=== PATIENT | female | born 1985 | race Caucasian/White ===

== ENCOUNTER 2018-02-09 10:51 | Emergency (ER) | payer OTHER ==
[2018-02-09] MEDS ORDERED: NORMAL SALINE 1000 ML 1,000 ML IV ONE (11:16)
[2018-02-09] MEDS ORDERED: KETOROLAC TROMETHAMINE INJ/PF 30 MG/1 ML SDV IV ONE (11:16)
--- NOTE | 2018-02-09 11:18 | ER Document Report ---
ED Medical Screen (RME) - General Chief Complaint: Flank Pain Stated Complaint: FLANK PAIN Time Seen by Provider: 02/09/18 11:16 Mode of Arrival: Wheelchair Information source: Patient - HPI Patient complains to provider of: L flank pain Onset: This morning - pt with onset of L flank pain earlier today. Went to and was sent here for further evaluation of possible kidney stones. - Related Data Allergies/Adverse Reactions: Iodine and Iodide Containing Produc Allergy (Verified 02/09/18 10:53) Physical Exam - Vital signs Vitals: Temp Pulse Resp BP Pulse Ox 97.6 F 66 16 121/78 98 02/09/18 11:00 02/09/18 11:00 02/09/18 11:00 02/09/18 11:00 02/09/18 11:00 Course - Vital Signs Vital signs: Temp Pulse Resp BP Pulse Ox 97.6 F 66 16 121/78 98 02/09/18 11:00 02/09/18 11:00 02/09/18 11:00 02/09/18 11:00 02/09/18 11:00
--- NOTE | 2018-02-09 12:06 | RADIOLOGY REPORT (SQ) ---
EXAM DESCRIPTION: CT LTD RENAL STONE PROTOCOL ON COMPLETED DATE/TIME: 02/09/2018 11:47 am REASON FOR STUDY: L flank pain COMPARISON: None. TECHNIQUE: CT scan of the abdomen and pelvis performed without intravenous or oral contrast. Images reviewed with lung, soft tissue, and bone windows. Reconstructed coronal and sagittal MPR images revi ewed. All images stored on PACS. All CT scanners at this facility use dose modulation, iterative reconstruction, and/or weight based d osing when appropriate to reduce radiation dose to as low as reasonably achievable (ALARA). [facility]: Dose Right [facility]: CareDose [facility]: Dose Right [facility]: Teradose 4D [facility]: Smart Toppr RADIATION DOSE: CT Rad equipment meets quality standard of care and radiation dose reduction techniq ues were employed. CTDIvol: 6.7 mGy. DLP: 346 mGy-cm.mGy. LIMITATIONS: None. FINDINGS: LOWER CHEST: No significant findings. No nodules or infiltrates. NON-CONTRASTED LIVER, SPLEEN, ADRENALS: Evaluation limited by lack of IV contrast. No identified sign ificant masses. PANCREAS: No masses. No peripancreatic inflammatory changes. GALLBLADDER: No identified stones by CT criteria. No inflammatory changes to suggest cholecystitis. RIGHT KIDNEY AND URETER: No suspicious masses. Assessment limited by lack of IV contrast. No signif icant calcifications. No hydronephrosis or hydroureter. LEFT KIDNEY AND URETER: No suspicious masses. Assessment limited by lack of IV contrast. No definit e renal calculi are identified. An obstructing 8.9 x 4.8 mm in diameter calculus is identified in th e distal left ureter best seen on image number 60. CT number is 886. There is hydronephrosis of the left kidney and dilatation of the left ureter proximal to the obstructing calculus. AORTA AND RETROPERITONEUM: No aneurysm. No retroperitoneal masses or adenopathy. BOWEL AND PERITONEAL CAVITY: No obvious masses or inflammatory changes. No free fluid. APPENDIX: Normal. PELVIS, BLADDER, AND ABDOMINAL WALL:No abnormal masses. No free fluid. Bladder normal. Intrauterine IUD is identified. BONES: No significant findings. OTHER: No other significant finding. IMPRESSION: Obstructing 8.9 x 4.8 mm in diameter calculus in the distal left ureter. No definite re nal calculi are identified. Other findings as noted above COMMENT: Quality ID # [id number]: Final reports with documentation of one or more dose reduction techniques (e.g., Automated exposure control, adjustment of the mA and/or kV according to patient size, use of iterative reconstruction technique) TECHNICAL DOCUMENTATION: JOB ID: [id number] [employer]- All Rights Reserved Reading location - IP/workstation name: [email or web address]
[2018-02-09 12:45] LABS: APPEARANCE,URINE CLOUDY; BILIRUBIN,URINE NEGATIVE (NEGATIVE); GLUCOSE, URINE NEGATIVE (NEGATIVE); KETONES,URINE TRACE mg/dL (NEGATIVE); LEUKOCYTE ESTERASE,URINE TRACE (NEGATIVE); NITRITE,URINE NEGATIVE (NEGATIVE); PROTEIN,URINE 100 mg/dL (NEGATIVE); URINE SPECIFIC GRAVITY 1.032; UROBILINOGEN,URINE NEGATIVE mg/dL (<2.0)
[2018-02-09 12:55] LABS: COLOR,URINE BROWN
[2018-02-09] MEDS ORDERED: MORPHINE SULFATE 10 MG/ML INJ IV ONE (13:20)
[2018-02-09] MEDS ORDERED: ONDANSETRON HCL INJ/PF 4 MG/2 ML SDV IV ONE (13:21)
[2018-02-09 14:01] LABS: HEMATOCRIT 40.2 % (36.0-47.0); MEAN CORPUSCULAR HEMOGLOBIN 31.9 pg (27.0-33.4); MEAN CORPUSCULAR HGB CONC 34.7 g/dL (32.0-36.0); MEAN CORPUSCULAR VOLUME 92 fl (80-97); PLATELET COUNT 327 10^3/uL (150-450); RED BLOOD COUNT 4.38 10^6/uL (3.72-5.28); RED CELL DISTRIBUTION WIDTH 13.2 % (11.5-14.0); WHITE BLOOD COUNT 10.3 10^3/uL (4.0-10.5)
[2018-02-09 14:02] LABS: ALANINE AMINOTRANSFERASE 63 U/L (9-52); ALBUMIN 4.7 g/dL (3.5-5.0); ALKALINE PHOSPHATASE 123 U/L (38-126); ANION GAP 13 (5-19); ASPARTATE AMINO TRANSFERASE 34 U/L (14-36); BILIRUBIN,DIRECT 0.2 mg/dL (0.0-0.4); BILIRUBIN,TOTAL 0.6 mg/dL (0.2-1.3); BLOOD UREA NITROGEN 16 mg/dL (7-20); CALCIUM 9.9 mg/dL (8.4-10.2); CARBON DIOXIDE 25 mmol/L (22-30); CHLORIDE 103 mmol/L (98-107); GLUCOSE 87 mg/dL (75-110); POTASSIUM 4.1 mmol/L (3.6-5.0); TOTAL PROTEIN 8.3 g/dL (6.3-8.2)
--- NOTE | 2018-02-09 14:07 | ER Document Report ---
ED General - General Chief Complaint: Flank Pain Stated Complaint: FLANK PAIN Time Seen by Provider: 02/09/18 11:16 Mode of Arrival: Wheelchair Information source: Patient Notes: 32-year-old female presents emergency department complaints of left flank pain that started today. Patient describes the pain as an aching sensation located in the left flank with radiation into the left lower quadrant. Patient denies any alleviating or exacerbating factors. Patient is having some associated nausea but denies any vomiting, diarrhea, constipation, vaginal bleeding, vaginal discharge. Patient denies any medical problems. She states that she is not on any current medications. Patient denies any surgeries on her abdomen. - HPI Onset: Just prior to arrival Onset/Duration: Sudden Quality of pain: Achy, Stabbing, Throbbing Associated symptoms: Nausea, Vomiting Exacerbated by: Denies Relieved by: Denies Similar symptoms previously: No Recently seen / treated by doctor: No - Related Data Allergies/Adverse Reactions: Iodine and Iodide Containing Produc Allergy (Verified 02/09/18 10:53) Past Medical History - General Information source: Patient - Social History Smoking Status: Never Smoker Frequency of alcohol use: Rare Drug Abuse: None Family History: Reviewed & Not Pertinent Patient has suicidal ideation: No Patient has homicidal ideation: No Renal/ Medical History: Denies: Hx Peritoneal Dialysis Psychiatric Medical History: Reports: Hx Depression - anxiety Past Surgical History: Reports: Hx Genitourinary Surgery - epesiotomy repair, Hx Gynecologic Surgery - leep Review of Systems - Review of Systems Constitutional: No symptoms reported EENT: No symptoms reported Cardiovascular: No symptoms reported Respiratory: No symptoms reported Gastrointestinal: Nausea, Vomiting Genitourinary: Flank pain Female Genitourinary: No symptoms reported Musculoskeletal: No symptoms reported Skin: No symptoms reported Hematologic/Lymphatic: No symptoms reported Neurological/Psychological: No symptoms reported -: Yes All other systems reviewed and negative Physical Exam - Vital signs Vitals: Temp Pulse Resp BP Pulse Ox 97.6 F 66 16 121/78 98 02/09/18 11:00 02/09/18 11:00 02/09/18 11:00 02/09/18 11:00 02/09/18 11:00 - General Notes: PHYSICAL EXAMINATION: GENERAL: Well-appearing, well-nourished and in no acute distress. HEAD: Atraumatic, normocephalic. EYES: Pupils equal round and reactive to light, extraocular movements intact, conjunctiva are normal. ENT: Nares patent, oropharynx clear without exudates. Moist mucous membranes. NECK: Normal range of motion, supple without lymphadenopathy LUNGS: Breath sounds clear to auscultation bilaterally and equal. No wheezes rales or rhonchi. HEART: Regular rate and rhythm without murmurs ABDOMEN: Soft, nondistended abdomen. Tenderness in the LLQ. No guarding, no rebound. No masses appreciated. Female : deferred Musculoskeletal: Normal range of motion, no pitting or edema. No cyanosis. NEUROLOGICAL: Cranial nerves grossly intact. Normal speech, normal gait. Normal sensory, motor exams PSYCH: Normal mood, normal affect. SKIN: Warm, Dry, normal turgor, no rashes or lesions noted. Course - Re-evaluation Re-evalutation: 02/09/18 14:45 CT abdomen pelvis was done. Patient has an 8.9 x 4.8 mm stone in the distal left ureter. No signs of kidney failure. There are white blood cells and leukocyte esterase in the patient's urine. Urine culture obtained. Patient given a gram of Rocephin in the emergency department. I contacted the urologist at [facility] in [place], Dr. Mandujano. He would like the patient to be discharged home with a strainer, with pain medication, with nausea medication, with Flomax, and started on an antibiotic. He states that he will see the patient in the office next week. He said if the patient begins to develop any fevers to go to [facility] where he will be located and he will see her. I discussed the plan of care with the patient. She is agreeable with the plan of care. - Vital Signs Vital signs: Temp Pulse Resp BP Pulse Ox 97.6 F 66 16 121/78 98 02/09/18 11:00 02/09/18 11:00 02/09/18 11:00 02/09/18 11:00 02/09/18 11:00 - Laboratory Result Diagrams: 02/09/18 11:34 02/09/18 11:34 Laboratory results interpreted by me: 02/09/18 02/09/18 11:34 12:25 ALT 63 H Total Protein 8.3 H Urine Protein 100 H Urine Ketones TRACE H Urine Blood LARGE H Ur Leukocyte Esterase TRACE H Urine Ascorbic Acid 40 H Discharge - Discharge Clinical Impression: Ureteral stone Condition: Good Disposition: HOME, SELF-CARE Instructions: Kidney Stone ([facility]) Additional Instructions: Follow up with Dr. Mandujano next week. Take medication as directed. Return for worsening symptoms or fever. Prescriptions: Hydrocodone/Acetaminophen [[place] 5-325 mg Tablet] 1 tab PO Q4 #15 tablet Ondansetron [Zofran Odt 4 mg Tablet] 1 tab PO Q4H PRN #15 tab.rapdis PRN Reason: For Nausea/Vomiting Sulfamethoxazole/Trimethoprim [Bactrim Ds Tablet] 1 each PO BID #10 tablet Tamsulosin HCl [Flomax 0.4 mg Cap.sr] 0.4 mg PO DAILY #7 cap.sr.24h Referrals: BRENDAN MANDUJANO MD [NO LOCAL MD] - Follow up as needed
[2018-02-09] MEDS ORDERED: LIDOCAINE 1% INJ-PF (10 MG/ML) 30 ML SDV INJ ONE (14:45)
[2018-02-09] MEDS ORDERED: CEFTRIAXONE INJ 1000 MG VIAL IV ONE (14:45)
[2018-02-09 16:53] VITALS: BP 96/52
== END 2018-02-09 16:52 | disposition home or self-care (01) ==
LOC: ER 10:51
DX: N13.2 Hydronephrosis with renal and ureteral calculous obstruction (principal); R11.0 Nausea
CPT/HCPCS: 99284; 96361; 96375; 96365; 36415; 87040; 87086; 85027; 81025; 80053; 81001; 76380; J1885; J2270; J0696; J2405; J7030